=== PATIENT | female | born 1950 | race Caucasian/White ===

== ENCOUNTER → 2016-09-19 | Outpatient (CLI) | payer OTHER | END | disposition home or self-care (01) | LOC: CARD 10:31 | DX: R42 Dizziness and giddiness (principal) ==

== ENCOUNTER → 2016-09-20 | Outpatient (CLI) | payer OTHER | END | disposition home or self-care (01) | LOC: US 07:36 | DX: N28.1 Cyst of kidney, acquired (principal); R16.1 Splenomegaly, not elsewhere classified; R18.8 Other ascites ==

== ENCOUNTER 2018-11-13 14:37 | Inpatient (IN) | payer OTHER ==
[2018-11-13] VITALS (10 sets, daily range): BP systolic 76–132; BP diastolic 22–68
[~2018-11-13] VITALS: Ht 160 cm; Wt 91.2 kg
--- NOTE | ~2018-11-13 | EKG ---
[place], [place] ELECTROCARDIOGRAM REPORT NAME: KATHY GUDINO UNIT #: [id number] ROOM: 508 DOCTOR: ALPHONSO DRAFT REPORT BIRTHDATE: [birth year] [facility] Test Date: 2018-11-13 Test Time: 14:48:11 Pat Name: KATHY GUDINO Department: Room: 508 Gender: F Refinery Operator: Suyapa Hoskins : 1950 Requested By: RIZWAN ACOSTA Order Number: [id number] Reading MD: Jan Dorado MD Measurements Intervals [place] Rate: 96 P: 46 NC: 142 QRS: -6 QRSD: 78 T: 43 QT: 373 QTc: 472 Interpretive Statements Sinus rhythm Nonspecific T wave abnormality Low voltage, precordial leads No previous ECG available for comparison Electronically Signed On 11-14-2018 7:56:28 PDT by Jan Dorado MD CM:EKGRPT:ELECTROCARDIOGRAM REPORT [id number] RIZWAN HATHAWAY DRAFT REPORT RIZWAN ACOSTA DO
[2018-11-13 15:18] LABS: BASO % 0.5 % (0.0-1.0); EOS # 0.5 10*3/uL (0.0-0.4); EOS % 9.7 % (1.0-4.0); HEMATOCRIT 24.5 % (37.0-47.0); LYMPH # 1.7 10*3/uL (1.3-4.4); LYMPH % 30.5 % (27.0-41.0); MEAN CELL VOLUME 83.6 fl (81.0-99.0); MEAN CORPUSCULAR HGB 23.5 pg (27.0-31.0); MEAN CORPUSCULAR HGB CONC 28.2 g/dl (33.0-37.0); MEAN PLATELET VOLUME 11.5 fl (9.6-12.3); MONO # 0.5 10*3/uL (0.1-1.0); MONO % 8.6 % (3.0-9.0); NEUT # 2.8 10*3/uL (2.3-7.9); NEUT % 50.5 % (47.0-73.0); PLATELET COUNT AUTOMATED 105 10*3/uL (130-400); RED BLOOD COUNT 2.93 10*6/uL (4.10-5.10); RED CELL DISTRI WIDTH 16.6 % (0-14.5); WHITE BLOOD COUNT 5.5 10*3/uL (4.8-10.8)
[2018-11-13 15:26] LABS: HEMOGLOBIN 6.9 g/dl (12.0-16.0)
[2018-11-13 15:27] LABS: ACT PARTIAL THROMBO TIME 23.9 SECONDS (20.0-32.1)
[2018-11-13 15:32] LABS: ALBUMIN 3.5 gm/dl (3.1-4.5); ALKALINE PHOSPHATASE 143 U/L (45-117); BUN 20 mg/dl (7-24); CHLORIDE 113 mmol/L (98-107); CREATININE 1.13 mg/dL (0.55-1.02); IRON 23 ug/dL (50-170); LIPASE 295 U/L (73-393); POTASSIUM 4.2 mmol/L (3.5-5.1); SGOT/AST 24 IU/L (3-35); SGPT/ALT 33 U/L (12-78); SODIUM 142 mmol/L (136-145); TOTAL IRON BINDING CAPACITY 420 ug/dl (250-450); TOTAL PROTEIN 6.5 gm/dL (6.4-8.2)
--- NOTE | 2018-11-13 15:40 | NUR ---
PT AMBULATED TO BATHROOM AT THIS TIME WITHOUT DIFFICULTY. URINE SPECIMEN SENT TO LAB.
[2018-11-13 15:43] LABS: TROPONIN I < 0.015 ng/ml (<0.045)
--- NOTE | 2018-11-13 15:45 | NUR ---
CRITICAL LAB RESULT RECEIVED AT THIS TIME. DR ACSOTA NOTIFIED.
[2018-11-13 15:52] LABS: BILIRUBIN NEGATIVE (NEGATIVE); BLOOD NEGATIVE (NEGATIVE); CLARITY CLEAR (CLEAR); COLOR YELLOW (YELLOW); GLUCOSE NEGATIVE (NEGATIVE); KETONE NEGATIVE (NEGATIVE); LEUKO ESTERASE NEGATIVE (NEGATIVE); NITRITE NEGATIVE (NEGATIVE); PH 5.5 (5.0-9.0); SPECIFIC GRAVITY 1.025 (1.005-1.030); UROBILINOGEN 0.2 E.U./dl (0.2-1.0)
[2018-11-13 15:59] LABS: FERRITIN 9.6 ng/mL (10.0-291.0)
[2018-11-13 16:04] LABS: BACTERIA 1+
--- NOTE | 2018-11-13 16:50 | NUR ---
UNIT #1 PRBC'S INITIATED. VS ARE STABLE. IV SITE IS ASYMPTOMATIC,BLOOD INFUSING WITHOUT DIFFICULTY. PT APPEARS TO BE TOLERATING PROCEDURE WELL. SHE WILL BE ADMITTED. KAILEE YATES
[2018-11-13] MEDS ORDERED: KRISTALOSE10 GM PO (18:46)
[2018-11-13] MEDS ORDERED: VITAMIN D31000 UNI1 PO (18:47)
[2018-11-13] MEDS ORDERED: GLUCOPHAGE1000 MG PO (18:48)
[2018-11-13] MEDS ORDERED: TRAD5TAB1 PO (18:49)
[2018-11-13] MEDS ORDERED: RANITIDINE HCL150 M1 PO (18:50)
[2018-11-13] MEDS ORDERED: FUROSEMIDE40 MG PO (18:51)
[2018-11-13] MEDS ORDERED: PROPRANOLOL HCL10 MG PO (18:52)
[2018-11-13] MEDS ORDERED: ALDACTONE50 M1 PO (18:53)
[2018-11-13] MEDS ORDERED: CITALOPRAM20 MG PO (18:54)
[2018-11-13] MEDS ORDERED: GLIPIZIDE5 MG PO (18:55)
[2018-11-13] MEDS ORDERED: IRON325 M1 PO (18:56)
[2018-11-13] MEDS ORDERED: GLUCOPHAGE500 MG PO (18:57)
[2018-11-13] MEDS ORDERED: TRAZODONE100 MG PO (18:58)
[2018-11-13] MEDS ORDERED: ROPINIROLE HYDRO3 MG PO (18:59)
[2018-11-13] MEDS ORDERED: GLYCOTROL CAPS1 EACH PO (18:59)
--- NOTE | 2018-11-13 19:07 | NUR ---
A 68, admitted to 5E, under the services of MIRELLA Saldana DO with a diagnosis of IRON DEFIENCY. Chief complaint is HBG 7.0. Patient arrived via stretcher from ER. Monitor applied. Initial assessment completed. Vital signs taken and recorded. MIRELLA SALDANA DO notified of admission to the unit. Orders received. See assessment for past medical history, medications and allergies. Patient and/or family oriented to unit. visitation policy reviewed. Clothing/patient valuable form completed. RAJINDER MARTINES
--- NOTE | 2018-11-13 19:44 | NUR ---
PER PRIOR NURSE GERBER MARTINES-TRUDY STATED THAT WAS CALLED AND NO NEW ODERS PLACED, STATED WILL SEE PATIENT
[2018-11-13 22:01] LABS: HEMATOCRIT 23.2 % (37.0-47.0)
[2018-11-13 22:05] LABS: HEMOGLOBIN 6.9 g/dl (12.0-16.0)
--- NOTE | 2018-11-13 22:07 | NUR ---
DR. MENJIVAR CONTACTED IN REGARDS TO HGB 6.9, NO NEW ORDERS AT THIS TIME.
--- NOTE | 2018-11-13 23:40 | NUR ---
Informed consent obtained from patient for Blood transfussion by Dr. MENJIVAR. Patient identified by arm band. Vital signs recorded. Blood unit number verified by 2 R.N.'s. I.V. site satisfactory. Unit 125 started at a KVO rate with Normal Saline. BIENVENIDO ROD
[2018-11-14] VITALS (7 sets, daily range): BP systolic 98–126; BP diastolic 48–74
--- NOTE | 2018-11-14 00:38 | NUR ---
PATIENT MEDICATED WITH RESTORIL FOR C/O INSOMNIA. WILL MONITOR
--- NOTE | 2018-11-14 01:38 | NUR ---
RESTORIL APPEARS EFFECTIVE. PATIENT RESTING QUIETLY IN BED, EYES CLOSED. NO DISTRESS NOTED. CALL LIGHT WITHIN REACH. WILL CONTINUE TO MONITOR
--- NOTE | 2018-11-14 01:48 | NUR ---
24 HR chart check completed.
--- NOTE | 2018-11-14 01:50 | NUR ---
2ND UNIT PRBCS COMPLETED AT THIS TIME. VSS, PATIENT SHOWS NO DISTRESS, RESTING QUIETLY IN BED. WILL CONTINUE TO MONITOR
[2018-11-14 06:34] LABS: ALBUMIN 3.2 gm/dl (3.1-4.5); ALKALINE PHOSPHATASE 124 U/L (45-117); BUN 18 mg/dl (7-24); CHLORIDE 114 mmol/L (98-107); CHOLESTEROL 205 mg/dL (<200); CREATININE 0.97 mg/dL (0.55-1.02); HDL CHOLESTEROL 43 mg/dl (40-60); LDL CHOLESTEROL 140 mg/dL (9-159); SGOT/AST 24 IU/L (3-35); SGPT/ALT 31 U/L (12-78); SODIUM 145 mmol/L (136-145); TRIGLYCERIDES 108 mg/dl (<150); VLDL CHOLESTEROL 22 mg/dL (6-40)
[2018-11-14 06:51] LABS: BASO % 0.7 % (0.0-1.0); EOS # 0.3 10*3/uL (0.0-0.4); EOS % 7.8 % (1.0-4.0); LYMPH # 1.5 10*3/uL (1.3-4.4); LYMPH % 33.6 % (27.0-41.0); MEAN CELL VOLUME 85.2 fl (81.0-99.0); MEAN CORPUSCULAR HGB 25.2 pg (27.0-31.0); MEAN CORPUSCULAR HGB CONC 29.6 g/dl (33.0-37.0); MEAN PLATELET VOLUME 12.1 fl (9.6-12.3); MONO # 0.4 10*3/uL (0.1-1.0); MONO % 9.4 % (3.0-9.0); NEUT # 2.1 10*3/uL (2.3-7.9); NEUT % 48.3 % (47.0-73.0); PLATELET COUNT AUTOMATED 85 10*3/uL (130-400); RED BLOOD COUNT 3.17 10*6/uL (4.10-5.10); RED CELL DISTRI WIDTH 15.9 % (0-14.5); WHITE BLOOD COUNT 4.4 10*3/uL (4.8-10.8)
[2018-11-14] MEDS ORDERED: TEMAZEPAM15 M1 PO (10:41)
--- NOTE | 2018-11-14 11:52 | NUR ---
Discharge instructions reviewed with patient/family. Patient receptive and verbalizes understanding. Follow-up care arranged. Written instructions given to patient/family. GALILEA SOTO
== END 2018-11-14 12:00 | disposition home or self-care (01) | DRG 811 ==
LOC: ED 14:37 → EDHOLD 16:18 → 5E 16:28
PROVIDERS: Emergency Medicine; Internal Medicine; ADMIT Internal Medicine
PROC: 30233N1 Transfusion of Nonautologous Red Blood Cells into Peripheral Vein, Percutaneous Approach (ICD-10-PCS; principal; 2018-11-13)
DX: D50.9 Iron deficiency anemia, unspecified (principal); N17.0 Acute kidney failure with tubular necrosis; R65.10 Systemic inflammatory response syndrome (SIRS) of non-infectious origin without acute organ dysfunction; R18.8 Other ascites; K92.1 Melena; E87.2 Acidosis; D69.6 Thrombocytopenia, unspecified; R79.82 Elevated C-reactive protein (CRP); R82.71 Bacteriuria; E87.8 Other disorders of electrolyte and fluid balance, not elsewhere classified; G25.81 Restless legs syndrome; R06.82 Tachypnea, not elsewhere classified; E55.9 Vitamin D deficiency, unspecified; I10 Essential (primary) hypertension; G47.00 Insomnia, unspecified; K74.60 Unspecified cirrhosis of liver; Z90.711 Acquired absence of uterus with remaining cervical stump; Z98.51 Tubal ligation status; Z90.49 Acquired absence of other specified parts of digestive tract; Z98.42 Cataract extraction status, left eye; Z88.6 Allergy status to analgesic agent; Z91.048 Other nonmedicinal substance allergy status; Z79.899 Other long term (current) drug therapy

== ENCOUNTER → 2018-12-14 | Day surgery (SDC) | payer OTHER ==
[~2018-12-14] MED LIST: ALDACTONE50 M1 PO; CITALOPRAM20 MG PO; FUROSEMIDE40 MG PO; GLIPIZIDE5 MG PO; GLUCOPHAGE1000 MG PO; GLUCOPHAGE500 MG PO; GLYCOTROL CAPS1 EACH PO; IRON325 M1 PO; KRISTALOSE10 GM PO; PROPRANOLOL HCL10 MG PO; RANITIDINE HCL150 M1 PO; ROPINIROLE HYDRO3 MG PO; TEMAZEPAM15 M1 PO; TRAD5TAB1 PO; TRAZODONE100 MG PO; VITAMIN D31000 UNI1 PO
[2018-12-14 10:36] LABS: ACT PARTIAL THROMBO TIME 23.2 SECONDS (20.0-32.1)
[2018-12-14 12:35] VITALS: BP 122/60
[2018-12-14 12:50] VITALS: BP 120/62
[2018-12-14 13:01] VITALS: BP 118/64
== END | disposition home or self-care (01) ==
PROVIDERS: Family Medicine
DX: R18.8 Other ascites (principal); K74.69 Other cirrhosis of liver; D50.8 Other iron deficiency anemias; E11.9 Type 2 diabetes mellitus without complications; Z88.8 Allergy status to other drugs, medicaments and biological substances

== ENCOUNTER 2019-04-01 14:34 | Emergency (ER) | payer OTHER ==
[~2019-04-01] VITALS: Ht 160 cm; Wt 79.8 kg
== END 2019-04-01 17:14 | disposition home or self-care (01) ==
LOC: ED 14:34
DX: S00.83XA Contusion of other part of head, initial encounter (principal); S00.511A Abrasion of lip, initial encounter; M54.2 Cervicalgia; R42 Dizziness and giddiness; I10 Essential (primary) hypertension; E11.9 Type 2 diabetes mellitus without complications; Z91.041 Radiographic dye allergy status; Z88.6 Allergy status to analgesic agent; Z79.899 Other long term (current) drug therapy; Z90.710 Acquired absence of both cervix and uterus; Z90.49 Acquired absence of other specified parts of digestive tract; W01.0XXA Fall on same level from slipping, tripping and stumbling without subsequent striking against object, initial encounter; Y93.01 Activity, walking, marching and hiking; Y92.89 Other specified places as the place of occurrence of the external cause; Y99.8 Other external cause status

== ENCOUNTER → 2019-04-28 | Outpatient (CLI) | payer OTHER | END | disposition home or self-care (01) | LOC: US 06:30 | DX: R18.8 Other ascites (principal); E11.9 Type 2 diabetes mellitus without complications; D50.8 Other iron deficiency anemias; K74.69 Other cirrhosis of liver ==

== ENCOUNTER → 2019-05-07 | Day surgery (SDC) | payer OTHER, MEDICAID ==
[2019-05-07 09:07] LABS: ACT PARTIAL THROMBO TIME 28.1 SECONDS (20.0-32.1)
--- NOTE | 2019-05-07 11:04 | NUR ---
IV ATTEMPTED TO BE STARTED X4 WITHOUT SUCCESS. PT. REFUSES ANY OTHER ATTEMPTS. DR. NIEVES NOTIFIED AND PT. DISCHARGED VIA W/C WITH FAMILY.
== END | disposition home or self-care (01) ==
PROVIDERS: Family Medicine
DX: R18.8 Other ascites (principal)

== ENCOUNTER 2019-07-03 13:46 | Inpatient (IN) | payer OTHER ==
[~2019-07-03] VITALS: Ht 160 cm; Wt 76.3 kg
--- NOTE | 2019-07-03 13:50 | NUR ---
Time: 1349 A 68 year old FEMALE admitted to under services of MIRELLA SALDANA DO. Pt. arrived via ambulance from [place]. Chief complaint: FALL. FILEMON CARLSON
[2019-07-03 14:30] VITALS: BP 107/61
--- NOTE | 2019-07-03 14:52 | NUR ---
DR. DIOP NOTIFIED OF WOUNDS AND NEED FOR ORDERS.
[2019-07-03] MEDS ORDERED: COMPAZINE10 M1 PO (15:58)
[2019-07-03 16:00] VITALS: BP 90/39
[2019-07-03] MEDS ORDERED: Haldol Concen2 MG/ML PO (16:01)
[2019-07-03] MEDS ORDERED: ATIVAN0.5 MG PO (16:06)
[2019-07-03] MEDS ORDERED: OXYCODONE HCL15 MG PO (16:19)
--- NOTE | 2019-07-03 18:17 | NUR ---
PT COMPLAINS OF PAIN RATED AT A 7. PRN OXYCODONE TO BE ADMINISTERED. WILL MONITOR FOR EFFECTIVENESS.
[2019-07-03 20:00] VITALS: BP 95/44
[2019-07-04] VITALS: BP 97/53
--- NOTE | 2019-07-04 05:34 | NUR ---
PATIENT GIVEN PO OXY 15 MG PER ORDERS FOR PAIN RATED 7/10. WOUND CARE COMPLETED AT THIS TIME. HEEL PROTECTORS REMOVED PER PT REQUEST.
[2019-07-04 08:00] VITALS: BP 88/52
--- NOTE | 2019-07-04 08:00 | NUR ---
IN TO ROOM. PATIENT AWAKE, ALERT AND ORIENTED. NO STATED COMPLAINTS AT THIS TIME. DENIES PAIN. NO SOB NOTED. RESPIRATIONS ARE EASY AND REGULAR ON ROOM AIR. BREAKFAST ORDERED FOR PATIENT. PILLOWS REARRANGED AND ADJUSTED FOR COMFORT. BED IN LOWEST LOCKED POSITION AND CALL LIGHT WITHIN REACH AND ENCOURAGED.
[2019-07-04 16:00] VITALS: BP 93/59
--- NOTE | 2019-07-04 19:28 | NUR ---
15 MG OXY GIVEN PER ORDERS FOR C/O ABDOMINAL PAIN. WILL MONITOR EFFECTIVENESS.
[2019-07-04 20:00] VITALS: BP 91/54
--- NOTE | 2019-07-04 20:12 | NUR ---
MEDICATION APPEARS EFFECTIVE. PT RESTING.
--- NOTE | 2019-07-04 23:00 | NUR ---
BLADDER SCANNED FOR 250
[2019-07-05] VITALS: BP 95/57
--- NOTE | 2019-07-05 06:33 | NUR ---
BLADDER SCANNED AND STRAIGHT CATH FOR 500CC
--- NOTE | 2019-07-05 06:52 | NUR ---
KATHY GUDINO [id number] Please refer to the physician's history and physical for past medical history, comorbid conditions, and allergies. Diagnosis: CIRRHOSIS OF THE LIVER Vitor Score: , WOUND DESCRIPTIONS: Wound Number: 1 Location of the wound: Right heel Type of wound: unstageable Thickness: Full Size: 4.0cm x 3.2cm x 0.1 Tunneling: none Undermining: none Sinus Tract: none Presence of Exudate: Serosanguineous Amount: Moderate Color: black, brown Odor: Foul Periwound Skin Appearance: Normal Wound edges: approximated Pain (associated with wound): none at time of assessment How does patient state this happened? pt stated she has had these for awhile Wound Number: 2 Location of the wound: left heel red and blanchable at time of assessment. No drainage noted at time of assessment. No open areas noted at time of assessment. Surface the patient is resting on: Isoflex SKIN PREVENTION RECOMMENDATION: 1. Pressure redistribution support surface as appropriate 2. Elevate heels 3. Remove boots/TEDS every shift and reapply 4. Head of bed 30 degrees as tolerated 5. Assess nutrition and hydration 6. Manage moisture 7. Avoid the use of containment devices while in bed 8. Use absorptive products on surfaces limit layers of linens on bed 9. Turn and reposition every 1-2 hours in bed and every 1 hour in chair as tolerated 10. Weight shifts every 15 minutes while up in chair 11. Offloading with pillows or device to keep heels elevated off bed 12. Monitor skin at least every shift 13. Inspect under medical devices twice a day WOUND TREATMENT RECOMMENDATIONS: Venous and arterial studies to bilateral lower extremities due to non-healing wounds Consult podiatry for possible debridement of right heel Apply sureprep to left heel allow time to dry then cover with optifoam gentle daily and prn for soiling Full thickness guidelines: Cleanse right heel with nss and apply sureprep around the wound thereahoney to wound bed and cover with optifoam gentle every 2 days and prn for soiling. Continue heel raiser pro boots to bilateral feet D/C unstageable guidelines to left heel D/C stage 2 guidelines to right heel
--- NOTE | 2019-07-05 07:00 | NUR ---
REPORT RECEIVED FROM ETL BI DEVELOPER NURSE. PATIENT LYING IN BED AT THIS TIME. NO S/S OF DISTRESS NOTED CALL LIGHT IN REACH.
[2019-07-05 08:00] VITALS: BP 92/49
--- NOTE | 2019-07-05 08:41 | NUR ---
Left message on resident phone regarding wound care recommendations.
--- NOTE | 2019-07-05 09:00 | NUR ---
PT RELAXING IN BED AT THIS TIME. NO COMPLAINTS VOICED.
--- NOTE | 2019-07-05 09:17 | NUR ---
Spoke with Cinthia Santos RN regarding wound care recommendations.
--- NOTE | 2019-07-05 09:37 | NUR ---
Patient is [facility].
--- NOTE | 2019-07-05 11:00 | NUR ---
PT SITTING IN CHAIR AT THIS TIME. CALL LIGHT IN REACH
--- NOTE | 2019-07-05 11:30 | NUR ---
PT MEDICATED WITH OXY PER ORDER FOR COMPLAINTS OF CHRONIC ABD PAIN. SEE MAR
[2019-07-05 12:00] VITALS: BP 103/54
--- NOTE | 2019-07-05 12:01 | NUR ---
SOY spoke with Donna ([phone]) [facility]. Patient is on day 2 for respite care. Per Donna patient is able to have non agressive PT. Patient has Asc[facility], per Donna patient gets "drained" Friday, Friday, and Friday. Donna asked if [facility] needs to do this or if the Hospital would be doing it. SOY spoke with Digital Program Manager Anna Marie about this. Will await return call from Anna Marie.
--- NOTE | 2019-07-05 12:18 | NUR ---
Spoke to Dr. Zhou regarding patient has been getting paracentesis MWF, will need reordered, and therapy will work with patient. Notified mental health social worker.
--- NOTE | 2019-07-05 12:19 | NUR ---
PHYSICAL THERAPY Physical Therapy evaluation completed on with full evaluation to follow. Recommend non-aggressive physical therapy per plan of care and return home with continued hospice/respite care upon discharge. Thank you for this referral. Anna Marie Arizmendi,PT,DPT.
--- NOTE | 2019-07-05 12:22 | NUR ---
SOY reached back out to Donna[facility]. SOY explained to her that the hospital will be doing a paracentesis on the patient MWF. SOY also explained that she will be getting PT non agressively.
--- NOTE | 2019-07-05 13:00 | NUR ---
PT STATES THAT HER PAIN MEDICATION HELPED
--- NOTE | 2019-07-05 13:30 | NUR ---
Occupational therapy orders received and chart reviewed. Patient admitted from home for hospice respite stay. Per discussion with case management, social work, and physical therapy, patient will be receiving non-aggressive physical therapy under hospice care. As discussed with social work, no further OT indicated at this time. Occupational therapy orders to be discharged at this time. Thank you for the referral. Asia Villasenor, OTR/L
--- NOTE | 2019-07-05 13:39 | NUR ---
DIRECTOR OF MEDICAL SERVICES [facility] She stated to hold off on OT. She would like the PT Eval and recommendation sent to fax [phone] when its completed.
[2019-07-05 13:45] VITALS: BP 96/54
--- NOTE | 2019-07-05 13:45 | NUR ---
SPOKE WITH DR. AUGUSTIN ABOUT PARAMETERS FOR PARACENTESIS. STATED THAT SHOULDNT BE DONE WITH SYSTOLIC LESS THAN 100. NO MORE KARSON 3,000 ML OUT. PT BP AT THIS TIME IS 96/54 M. HOSPICE NURSE IN AGREEMENT THAT PARACENTESIS WILL NOT HAPPEN TODAY
--- NOTE | 2019-07-05 13:56 | NUR ---
CONSULT CALLED TO PODIATRY
--- NOTE | 2019-07-05 15:40 | NUR ---
Nutritional Support Services Note: Dx of cirrhosis of liver. Hospice respite care. Appetite is fair to good for meals. Ht.5'3 Wt.168# IBW 105-125. She receives a regular diet. Wounds noted to right and left heel. No labs obtained. Will provide pt with a night snack. Refuses supplement at this time. Will follow as needed. Staff to encourage intake. Roz Sherman Rdn Ld
[2019-07-05 16:00] VITALS: BP 96/59
--- NOTE | 2019-07-05 18:15 | NUR ---
BLADDER SCANNED FOR 152 ML AT THIS TIME.
[2019-07-05 20:00] VITALS: BP 106/57
--- NOTE | 2019-07-05 20:08 | NUR ---
PT SLEEPING IN BED, EASILY AROUSABLE. NO S/S OF DISTRESS NOTED. WILL MONITOR. CALL LIGHT IN REACH. BED ALARM INTACT.
--- NOTE | 2019-07-05 23:30 | NUR ---
PATIENT BLADDER SCANNED FOR > 498 CCs. STRAIGHT CATHED PER ORDER. 550 CCs URINE OUTPUT NOTED. URINE DARK JANES WITH STRONG ODOR.
[2019-07-06] VITALS: BP 92/50
[2019-07-06 02:00] VITALS: BP 100/63
--- NOTE | 2019-07-06 02:30 | NUR ---
PT MEDICATED WITH 15 MG PO OXYCODONE TOTAL PER PRN ORDER. WILL MONITOR EFFECTIVENESS. CALL LIGHT IN REACH.
--- NOTE | 2019-07-06 06:41 | NUR ---
PT BLADDER SCANNED FOR 209. NO STRAIGHT CATH NEEDED AT CURRENT TIME.
--- NOTE | 2019-07-06 06:51 | NUR ---
PT MEDICATED WITH PO OXYCODONE (15 MG TOTAL) PER PRN ORDER FOR C/O "LIVER"/ABDOMINAL PAIN RATED 6/1O. WILL MONITOR EFFECTIVENESS. CALL LIGHT IN REACH.
[2019-07-06 08:00] VITALS: BP 100/54
--- NOTE | 2019-07-06 08:03 | NUR ---
COMPLAINS OF NO DISCOMFORT. NO COMPLAINTS VOICED. SMALL BM CLEANED. ASSISTED PT TO CHAIR WITH 2xASSIST. PT NOTED WITH STIFFNESS IN LEGS AND HIPS. CALL LIGHT IN REACH. BODY ALARM ON.
--- NOTE | 2019-07-06 09:15 | NUR ---
PHYSICAL THERAPY Patient seen this am 1:1 for therapy visit and was sitting up in bedside chair upon therapist arrival. Patient was identified by name / and reports no new c/o's other than feeling weak all over. OT personal injury legal assistant was also present for observation only this session as patient tolerated, B LE PROM, all planes, x 10 reps each to improve ROM with gentle movements to avoid pain c/o. Patient transfers sit to stand MOD A x 2, receiving v/c to improve hand placement / performance and improved to MIN A x 2 for several more trials. Patient also ambulated 5'x 1, use of wh walker, MIN A, demonstrating very short, choppy steps and retrograde posture x 1. Patient needed therapist assist to correct posture to avoid falling backwards and returned to bedside chair with increased fatigue. Patient remained in chair with call light, tray table, telephone and body alarm for safety. Will continue per POC as tolerated, total treatment time 14 minutes. Josiah Samuels, LIEUTENANT FIRE FIGHTER
--- NOTE | 2019-07-06 09:39 | NUR ---
TOLERATED PO MEDS WHOLE WITH WATER. NO COMPLAINTS VOICED. CALL LIGHT IN REACH.
--- NOTE | 2019-07-06 10:19 | NUR ---
PODIATRY IN TO SEE PT. WOUND CARE COMPLETED BY .
[2019-07-06 12:00] VITALS: BP 112/54
--- NOTE | 2019-07-06 13:07 | NUR ---
PHYSICAL THERAPY CO-SIGN I approve of the Physical Therapy notes written above. MAGO EMMANUEL, PT, DPT
--- NOTE | 2019-07-06 13:37 | NUR ---
REPOSITIONED IN BED. NO VOICED COMPLAINTS. ORANGE JUICE PROVIDED PER PT REQUEST. CALL LIGHT IN REACH. BED ALARM ON.
--- NOTE | 2019-07-06 14:33 | NUR ---
BLADDER SCANNED FOR >475. STRAIGHT CATHED FOR 600. TOLERATED WELL.
--- NOTE | 2019-07-06 14:50 | NUR ---
PAIN PILLS GIVEN PER REQUEST FOR GENERALIZED PAIN RATED 7/10. CALL LIGHT IN REACH. WILL MONITOR. PT ALSO AGREEABLE AT THIS TIME FOR ONE TIME DOSE OF DIFLUCAN FOR YEAST LIKE AREA NOTED ON CATHETER INSERTION.
[2019-07-06 16:00] VITALS: BP 114/68
[2019-07-06 20:00] VITALS: BP 103/58
--- NOTE | 2019-07-06 22:30 | NUR ---
PATIENT BLADDER SCANNED FOR >250. STRAIGHT CATHED. 450CC STRAW COLORED URINE OUT. PATIENT TOLERATED WELL.
[2019-07-07] VITALS: BP 95/48
--- NOTE | 2019-07-07 02:45 | NUR ---
Upon discharge recommend patient to follow up for wound care in outpatient setting continue current wound care orders at discharging facility
--- NOTE | 2019-07-07 04:09 | NUR ---
PATIENT C/O ABDOMINAL PAIN. RATES 11/24. MEDICATED WITH OXYCODONE. WILL CHECK EFFECTIVENESS
[2019-07-07 08:00] VITALS: BP 109/59
--- NOTE | 2019-07-07 08:00 | NUR ---
IN PT ROOM AT THIS TIME CLEANING UP THE PATIENT WITH JACLYN YATES. CLEANING HER UP A WOUND ON HER LEFT BUTTOCK IS NOTICED, WILL NOTIFY COMMERCIAL RELATIONSHIP MANAGER. PT IS CHANGED AND REPOSITIONED AT THIS TIME. BREAKFAST ORDERED. CALL LIGHT WITHIN REACH, WILL CONTINUE TO MONITOR
--- NOTE | 2019-07-07 08:00 | NUR ---
PT DENIES HAVING A PICTURE OF HER BUTTOCK TAKEN FOR THE WOUND DOCUMENTATION. RECEPTION CLERK NOTIFIED.
--- NOTE | 2019-07-07 09:17 | NUR ---
INFRASTRUCTURE DEVELOPER faxed PT Eval to [facility]. Patient is on day 4/5 for Respite Care.
--- NOTE | 2019-07-07 09:55 | NUR ---
3L OF FLUID REMOVED FROM PIG TAIL DRAIN TO ABDOMEN PER DR SEGURA ORDERED. PT TOLERATED WELL.
--- NOTE | 2019-07-07 11:11 | NUR ---
PT/OT IN ROOM WITH THE PATIENT AT THIS TIME. WILL BLADDER SCAN AND STRAIGHT CATH HER WHEN THEY ARE DONE
--- NOTE | 2019-07-07 11:34 | NUR ---
BLADDER SCANNER DONE AT THIS TIME AND SHOWING >261. STRAIGHT CATH COMPLETE AND OUTPUT OF 300 DOUCMENTED
--- NOTE | 2019-07-07 11:37 | NUR ---
HOSPICE NURSE IN TO SEE PATIENT
--- NOTE | 2019-07-07 11:39 | NUR ---
PHYSICAL THERAPY Patient seen this am 1:1 for therapy visit and was resting supine in bed upon therapist arrival. Patient identified by name / and reported no c/o's pain prior to transfering supine to sit EOB with MOD A x 1. Patient needed a minute or so to collect herself, then transfers sit to stand MOD A, with use of wh walker standing support. Patient able to ambulate 10'x 1, wh walker, MIN A, while demonstrating L scissoring gait pattern, decreased stride, and very unsteady during 180 turn around. Patient also fatigues quickly and returned to supine in bed with LE's elevated on pillow. Patient remained with call light, tray table and bed alarm for safety. Will continue per POC as tolerated, total treatment time 14 minutes. Josiah Samuels, CHIEF CRUISER
[2019-07-07 12:00] VITALS: BP 85/40
--- NOTE | 2019-07-07 12:01 | NUR ---
PT RATES HER PAIN A 10/10 IN HER LLQ. PRN OXYCODONE IS GIVEN AT THIS TIME. CALL LIGHT WITHIN REACH, WILL CONTINUE TO MONITOR
--- NOTE | 2019-07-07 12:04 | NUR ---
HOSPICE NURSE LEAVING AT THIS TIME, SHE STATES THAT THE PATIENT MAY BE TRANSFERRED OUT TODAY, AND [facility]. WILL AWAIT FOR BLADE GRINDER TO LET US KNOW THE NEXT STEP
--- NOTE | 2019-07-07 13:20 | NUR ---
IN TO RE-ASSESS PT AFTER GIVIN PAIN MEDS, AND PT IS SLEEPING. WILL CONTINUE TO MONITOR
--- NOTE | 2019-07-07 13:43 | NUR ---
SOY spoke with Christine. [facility] is verfying patient insurance before they will admit her. [facility] will coordinate transfer once they receive the go ahead from [facility]. SOY notified MERCEDES Nnio of this.
--- NOTE | 2019-07-07 14:35 | NUR ---
[facility] STATES THAT THE PATIENT WILL BE DISCHARGED TO [facility] AND AMBULANCE WILL BE HERE AT 1600 TO PICK HER UP
--- NOTE | 2019-07-07 14:37 | NUR ---
SERRANO DR KAUR TO INFORM HIM THAT THE PATIENT IS GOING TO BE TRANSFERRED TO [facility] AND WILL BE LEAVING AT 1600
--- NOTE | 2019-07-07 14:39 | NUR ---
IN PT ROOM TO LET HER KNOW THAT AT 1600 SHE WILL BE TRANSFERRED TO [facility]. PT STILL REFUSES PICTURES OF WOUND TO BE TAKEN, FOOT WOUNDS NOT REMOVED DUE TO BEING DRESSED THIS MORNING AND PODIATRY STATES TO NOT REMOVE.
[2019-07-07] MEDS ORDERED: OXYCODONE HYDRO15 MG PO (14:48)
--- NOTE | 2019-07-07 15:03 | NUR ---
IN PT ROOM GOING OVER DISCHARGE PLANS. PT AGREES TO BEING TRANSFERRED TO [facility] AND HAS NO FURTHER QUESTIONS AT THIS TIME. NO IV TO REMOVE AND NO PRODUCT INSPECTION COORDINATOR
--- NOTE | 2019-07-07 15:09 | NUR ---
CALLED [facility] TO GIVE REPORT AND LEFT MY NAME AND PHONE NUMBER FOR NURSE WHO WILL BE CARING FOR THE PATIENT TO CALL ME BACK
--- NOTE | 2019-07-07 15:36 | NUR ---
SPOKE TO NURSE AT [facility] AND GAVE REPORT OF PATIENT
--- NOTE | 2019-07-07 15:44 | NUR ---
PT BELONGINGS ALL GATHERED UP AND READY FOR THE AMBULANCE TO PICK HER UP
--- NOTE | 2019-07-07 16:20 | NUR ---
KIMBERLYN ON THE FLOOR LOADING PATIENT UP
--- NOTE | 2019-07-07 16:24 | NUR ---
ABULANCE LEAVING THE FLOOR AT THIS TIME WITH THE PATIENT AND ALL OF HER BELONGINGS
--- NOTE | 2019-07-08 09:57 | NUR ---
PHYSICAL THERAPY CO-SIGN I approve of the Physical Therapy notes written above. MAGO EMMANUEL PT, DPT
== END 2019-07-07 16:24 | disposition hospice, home (50) | DRG 433 ==
LOC: 4E 13:46
PROVIDERS: ADMIT Internal Medicine
PROC: 0W9G30Z Drainage of Peritoneal Cavity with Drainage Device, Percutaneous Approach (ICD-10-PCS; principal; 2019-07-07)
DX: K74.60 Unspecified cirrhosis of liver (principal); R18.8 Other ascites; Z51.5 Encounter for palliative care; I10 Essential (primary) hypertension; E55.9 Vitamin D deficiency, unspecified; L89.612 Pressure ulcer of right heel, stage 2; L89.621 Pressure ulcer of left heel, stage 1; Z66 Do not resuscitate; G25.81 Restless legs syndrome; E11.9 Type 2 diabetes mellitus without complications; Z90.49 Acquired absence of other specified parts of digestive tract; Z98.51 Tubal ligation status; Z90.711 Acquired absence of uterus with remaining cervical stump; Z98.42 Cataract extraction status, left eye; Z88.6 Allergy status to analgesic agent; Z91.041 Radiographic dye allergy status; Z79.899 Other long term (current) drug therapy; Z79.84 Long term (current) use of oral hypoglycemic drugs